=== PATIENT | female | born 1965 | race Caucasian/White ===

== ENCOUNTER 2018-08-29 16:25 | Emergency (ER) | payer OTHER ==
[~2018-08-29] VITALS: Ht 160 cm; Wt 81.7 kg
[2018-08-29 17:53] VITALS: BP 121/57
--- NOTE | 2018-08-31 14:09 | EKG ---
[place] [address] ELECTROCARDIOGRAM REPORT Name: LELO GRACIA Room: [facility]#: [id number] Admission: 08/29/18 Attend Phys: Discharge: 08/29/18 Date of : 61 Report #: [id number] THIS REPORT FOR: //name// [facility] ED Test Date: 2018-08-29 Test Time: 17:26:10 Pat Name: LELO GRACIA Department: Room: Gender: F Metal Molder: MARCELINO : 1965 Requested By: Marilee Albarran Order Number: [id number] MD: Jean-Claude Pina Measurements Intervals [place] Rate: 72 P: 75 VT: 153 QRS: 42 QRSD: 97 T: 38 QT: 435 QTc: 477 Interpretive Statements Sinus rhythm Probable left atrial enlargement Borderline prolonged QT interval Baseline wander in lead(s) V6 No previous ECG available for comparison Electronically Signed On 08-31-2018 14:09:41 FREIGHT RATE ANALYST by Jean-Claude Pina [email or web address] <ELECTRONICALLY SIGNED> By: Jean-Claude Pina MD, [facility] 08/31/18 1409 [id number] Jean-Claude Pina MD, FACC /EPI
== END 2018-08-29 17:54 | disposition home or self-care (01) ==
LOC: M.ERS 16:25
DX: R55 Syncope and collapse (principal)